=== PATIENT | male | born 1965 | race Hispanic/Latino ===

== ENCOUNTER 2018-11-19 13:20 | Emergency (ER) | payer OTHER ==
[2018-11-19 13:36] VITALS: BP 131/81; PULSE 87; RESP 18; TEMP 99; O2SAT 98
[2018-11-19] MEDS ORDERED: Tdap Vaccine 0.5 ml Vial (10-64 yrs) IM ONE ×2 (13:38→14:17)
--- NOTE | 2018-11-19 13:51 | ED PDOC ---
Upper Extremity Pain/Injury Time Seen by Provider: 11/19/18 13:35 Chief Complaint (Nursing): Finger,Hand,&Wrist Chief Complaint (Provider): Left Hand Injury History Per: Patient History/Exam Limitations: no limitations Onset/Duration Of Symptoms: Mins (just prior to arrival) Current Symptoms Are (Timing): Still Present Additional Complaint(s): 53 year old male presents to the ED for evaluation of left 3rd, 4th, and 5th digit pain s/p getting his left hand stuck in a concrete bucket hooker just prior to arrival. He notes most of his pain is on the 4th digit. Denies other complaints. Unsure of last tetanus. PMD: none provided Past Medical History Reviewed: Historical Data, Nursing Documentation, Vital Signs Vital Signs: Last Vital Signs Temp 99 F 11/19/18 13:34 Pulse 87 11/19/18 13:34 Resp 18 11/19/18 13:34 BP 131/81 11/19/18 13:34 Pulse Ox 98 11/19/18 13:34 - Medical History PMH: No Chronic Diseases Denies: Diabetes, Hepatitis, HIV, HTN, Seizures, Sexually Transmitted Disease - Surgical History Surgical History: No Surg Hx - Family History Family History: States: Unknown Family Hx - Social History Current smoker - smoking cessation education provided: No Alcohol: None Drugs: Denies - Immunization History Hx Tetanus Toxoid Vaccination: No Hx Influenza Vaccination: No Hx Pneumococcal Vaccination: No - Home Medications Home Medications: Ambulatory Orders Medication Instructions Recorded Cephalexin [Keflex] 500 mg PO BID #10 capsule 11/19/18 Ibuprofen [Motrin] 600 mg PO Q8 PRN #21 tab 11/19/18 Tramadol HCl [Ultram] 50 mg PO Q12 PRN #8 tablet 11/19/18 - Allergies Allergies/Adverse Reactions: Allergies Allergy/AdvReac Type Severity Reaction Status Date / Time No Known Allergies Allergy Unverified 11/19/18 13:34 Review of Systems ROS Statement: Except As Marked, All Systems Reviewed And Found Negative Musculoskeletal: Positive for: Other (left hand 3rd, 4th, and 5th digit pain, most pain located on 4th digit) Physical Exam - Reviewed Nursing Documentation Reviewed: Yes Vital Signs Reviewed: Yes - Physical Exam Appears: Positive for: Uncomfortable Skin: Positive for: Normal Color Extremity: Positive for: Other (abrasion to dorsal surface of 3rd left digit near middle phalanx; 15% subungual hematoma to 4th left nail). Negative for: Normal ROM (limited ROM of left hand 3rd 4th and 5th digits secondary to pain) Comments: Exam limited secondary to pain - ECG O2 Sat by Pulse Oximetry: 98 (RA) Pulse Ox Interpretation: Normal - Progress ED Course And Treament: WOUNDS TREATED WITH BACITRACIN OINTMENT. FINGERSPLINT PLACED ON FOURTH DIGIT MOTRIN 600MG X 1 DOSE Medical Decision Making Medical Decision Making: Time: 1338 Initial Impression: left hand injury Initial Plan: --Tetanus booster --Tylenol 600mg PO --Left hand XR Scribe Attestation: Documented by Anjana Avery, acting as a scribe for Neda Middleton PA-C. Provider Scribe Attestation: All medical record entries made by the Scribe were at my direction and personally dictated by me. I have reviewed the chart and agree that the record accurately reflects my personal performance of the history, physical exam, medical decision making, and the department course for this patient. I have also personally directed, reviewed, and agree with the discharge instructions and disposition. Procedures - Time-Out Type of Procedure: SUBUNGUAL HEMATOMA TREPANATION Site of Procedure: LEFT HAND FOURTH DIGIT FINGERNAIL Correct Patient: Yes (SMALL HOLE CAUTERIZED WITH MODERATE BLOOD EXPRESSED AND RELIEF NOTED BY PT) Correct Procedure: Yes Correct Site Marked: Yes PA/Tech: NEDA MIDDLETON PA-C Disposition - Clinical Impression Clinical Impression: Distal phalanx or phalanges, closed fracture, Subungual hematoma - Patient ED Disposition Is Patient to be Admitted: No - Disposition Referrals: Rafal Cervantes MD [Medical Doctor] - Disposition: Routine/Home Disposition Time: 14:59 Condition: FAIR Prescriptions: Cephalexin [Keflex] 500 mg PO BID #10 capsule Ibuprofen [Motrin] 600 mg PO Q8 PRN #21 tab PRN Reason: Pain, Moderate (4-7) Tramadol HCl [Ultram] 50 mg PO Q12 PRN #8 tablet PRN Reason: Pain, Moderate (4-7) Instructions: Finger Fracture (DC) Forms: [facility] ED School/Work Excuse
--- NOTE | 2018-11-19 14:48 | RAD ---
PROCEDURE: Left Hand Radiographs. HISTORY: hand injury COMPARISON: None. FINDINGS: BONES: Comminuted minimally displaced fracture of the tuft of the 4th distal phalanx. No other fracture identified. JOINTS: Normal. No osteoarthritic changes. SOFT TISSUES: Normal. OTHER FINDINGS: None. IMPRESSION: Comminuted minimally displaced fracture of the 4th distal phalangeal tuft.
== END 2018-11-19 15:21 | disposition home or self-care (01) ==
LOC: H.ER 13:20
DX: S62.635A Displaced fracture of distal phalanx of left ring finger, initial encounter for closed fracture (principal); W31.89XA Contact with other specified machinery, initial encounter; S60.142A Contusion of left ring finger with damage to nail, initial encounter